=== PATIENT | male | born 1980 | race Two or more races ===

== ENCOUNTER 2016-09-01 12:18 | Inpatient (IN) | payer MEDICAID ==
[~2016-09-01] VITALS: Ht 170.2 cm; Wt 93.6 kg
[~2016-09-01 12:18] MED LIST: CARV6.2551; ENAL-3; ENAL20TA70; FURO40TA4; NIFE30TA70; NIFE60TA53
[2016-09-01] MEDS ORDERED: FUROSEMIDE 40 MG/4 ML VIAL IV ONE (13:15)
[2016-09-01 13:43] LABS: Basophils # (auto) 0 uL; Basophils % (auto) 0.4 % (0.0-2.0); Eosinophils # (auto) 0.1 uL; Eosinophils % (auto) 1.3 % (0.0-7.0); Hematocrit 47.2 % (41.0-53.0); Hemoglobin 15.6 g/dL (13.5-17.5); Lymphocytes # (auto) 1.1 uL; Lymphocytes % (auto) 13.4 % (10.0-50.0); Mean Corpuscular Hemoglobin 29.5 pg (28.0-32.0); Mean Corpuscular Volume 89.6 fL (80.0-100.0); Mean Platelet Volume 9.1 fL (7.4-10.4); Monocytes # (auto) 0.5 uL; Monocytes % (auto) 6.2 % (0.0-12.0); Neutrophils # (auto) 6.2 uL; Neutrophils % (auto) 78.7 % (37.0-80.0); Platelet Count (auto) 227 10^3/uL (140-450); Red Cell Distribution Width 15.3 % (11.6-16.0); White Blood Cell 7.8 10^3/uL (4.4-10.8)
[2016-09-01 14:10] LABS: Urine Bilirubin Negative (Negative); Urine Blood Negative /uL (Negative); Urine Color Yellow (Yellow); Urine Glucose Normal (Normal); Urine Ketone Negative (Negative); Urine Nitrite Negative (Negative); Urine RBC <1 /hpf (0 - 3); Urine Urobilinogen Normal (Negative); Urine pH 5.5 (5.0-8.0)
[2016-09-01 14:11] LABS: Albumin 3.5 g/dL (3.4-5.0); BUN/Creatinine Ratio 14.4; Bilirubin, Total 1.2 mg/dL (0.2-1.0); Calcium 8.5 mg/dL (8.5-10.1); Potassium 3.2 mmol/L (3.5-5.1); Total Protein 7.8 g/dL (6.4-8.2)
[2016-09-01 14:12] LABS: Temperature: 22.8 C (20.0-25.0)
[2016-09-01 14:27] LABS: INR 1.04 (0.9-1.15); Prothrombin Time 10.7 sec (9.37-12.3)
[2016-09-01] MEDS ORDERED: ASPirin 81 mg TAB PO ONE (14:45)
[2016-09-01] MEDS ORDERED: ENOXAPARIN SOD 100 MG/1 ML SYRINGE SC ONE (14:45)
[2016-09-01] MEDS ORDERED: POTASSIUM CHL 20 Meq TABLET PO ONE (15:45)
[2016-09-01] MEDS ORDERED: MORPHINE SULF INJ 2 MG/ML SYRINGE 1ML IV PRN (15:45)
[2016-09-01] MEDS ORDERED: NITROGLYCERIN 0.4 MG SL TAB SL PRN (15:45)
[2016-09-01] MEDS ORDERED: ENALAPRIL MALEATE 10 MG TAB PO ONE (15:45)
[2016-09-01] MEDS ORDERED: FOLIC ACID 1 MG in D5W 5% 50 ML IV ONE (15:45)
[2016-09-01] MEDS ORDERED: NIFEdipine ER 30 MG TAB PO ONE (15:45)
[2016-09-01] MEDS ORDERED: THIAMINE HCL 100 MG/ML 2ML VIAL IV ONE (15:45)
[2016-09-01] MEDS: cloNIDine HCL 0.1 MG TAB PO PRN ×2 (17:29→21:37)
[2016-09-01] MEDS: METOPROLOL TARTRATE 25 MG TAB PO SCH (21:37)
[2016-09-02] MEDS: LORazepam 2MG/ML-1ML VIAL IV PRN (02:16)
[2016-09-02 04:42] LABS: Calcium 8.7 mg/dL (8.5-10.1); Magnesium 2.2 mg/dL (1.6-2.6); Potassium 3.1 mmol/L (3.5-5.1)
[2016-09-02 04:44] LABS: Temperature: 20.1 C (20.0-25.0)
[2016-09-02] MEDS ORDERED: POTASSIUM CHL 20 Meq TABLET PO SCH (10:00)
[2016-09-02] MEDS ORDERED: FUROSEMIDE 40 MG TAB PO SCH (10:00)
[2016-09-02] MEDS: ASPirin 81 mg TAB PO SCH (10:02)
[2016-09-02] MEDS: THIAMINE HCL 100 MG/ML 2ML VIAL IV SCH (10:02)
[2016-09-02] MEDS: ENALAPRIL MALEATE 10 MG TAB PO SCH (10:02)
[2016-09-02] MEDS: FOLIC ACID 1 MG in D5W 5% 50 ML IV SCH ×2 (10:02→11:00)
[2016-09-02] MEDS: METOPROLOL TARTRATE 25 MG TAB PO SCH ×2 (10:04→22:01)
[2016-09-02] MEDS: NIFEdipine ER 30 MG TAB PO SCH (10:04)
[2016-09-02] MEDS ORDERED: METOPROLOL TARTRATE 1MG/1ML-5ML VIAL IV ONE (10:20)
[2016-09-02] MEDS ORDERED: NITROGLYCERIN 0.4 MG SL TAB SL ONE (10:20)
[2016-09-02] MEDS: SOD CHL 0.45% 1,000 ML IV SCH (13:17)
[2016-09-02 15:18] VITALS: BP 123/85
[2016-09-02 20:00] VITALS: BP 146/96
[2016-09-02 22:00] VITALS: BP 146/96
[2016-09-02] MEDS: ATORVASTATIN 20 MG TAB PO SCH (22:00)
[2016-09-03] MEDS: LORazepam 2MG/ML-1ML VIAL IV PRN ×3 (00:21→20:33)
[2016-09-03 05:00] VITALS: BP 144/96
[2016-09-03 06:28] LABS: BUN/Creatinine Ratio 15.9; Calcium 8.9 mg/dL (8.5-10.1)
[2016-09-03 06:40] LABS: Potassium 3.2 mmol/L (3.5-5.1)
[2016-09-03 08:00] VITALS: BP 165/115
[2016-09-03 09:00] VITALS: BP 182/100
[2016-09-03] MEDS: SOD CHL 0.45% 1,000 ML IV SCH (09:00)
[2016-09-03] MEDS: THIAMINE HCL 100 MG/ML 2ML VIAL IV SCH (09:17)
[2016-09-03] MEDS: ENALAPRIL MALEATE 10 MG TAB PO SCH (09:17)
[2016-09-03] MEDS: cloNIDine HCL 0.1 MG TAB PO PRN (09:17)
[2016-09-03] MEDS: ASPirin 81 mg TAB PO SCH (09:18)
[2016-09-03] MEDS: METOPROLOL TARTRATE 25 MG TAB PO SCH ×2 (09:18→20:57)
[2016-09-03] MEDS: NIFEdipine ER 30 MG TAB PO SCH (09:19)
[2016-09-03] MEDS: FOLIC ACID 1 MG in D5W 5% 50 ML IV SCH (10:55)
[2016-09-03] MEDS ORDERED: LABETALOL HCL 5 MG/ML 4ML SYRINGE IV PRN (12:00)
[2016-09-03] MEDS ORDERED: cloNIDine HCL 0.1 MG TAB PO ONE (12:00)
[2016-09-03 13:00] VITALS: BP 154/116
[2016-09-03 17:00] VITALS: BP 137/91
[2016-09-03] MEDS: ATORVASTATIN 20 MG TAB PO SCH (20:56)
[2016-09-03] MEDS: cloNIDine HCL 0.1 MG TAB PO SCH (20:57)
[2016-09-03 21:59] VITALS: BP 152/113
[2016-09-04] MEDS: LORazepam 2MG/ML-1ML VIAL IV PRN ×2 (02:28→21:08)
[2016-09-04 04:54] VITALS: BP 150/113
[2016-09-04] MEDS: SOD CHL 0.45% 1,000 ML IV SCH (05:00)
[2016-09-04 07:12] LABS: BUN/Creatinine Ratio 15.9; Calcium 8.6 mg/dL (8.5-10.1); Potassium 3.3 mmol/L (3.5-5.1)
[2016-09-04 08:00] VITALS: BP 151/116
[2016-09-04 09:00] VITALS: BP 151/116
[2016-09-04] MEDS: FOLIC ACID 1 MG in D5W 5% 50 ML IV SCH (10:44)
[2016-09-04] MEDS: THIAMINE HCL 100 MG/ML 2ML VIAL IV SCH (10:44)
[2016-09-04] MEDS: cloNIDine HCL 0.1 MG TAB PO SCH ×2 (10:45→22:11)
[2016-09-04] MEDS: METOPROLOL TARTRATE 25 MG TAB PO SCH ×2 (10:45→22:12)
[2016-09-04] MEDS: ASPirin 81 mg TAB PO SCH (10:46)
[2016-09-04] MEDS ORDERED: POTASSIUM CHL 20 Meq TABLET PO ONE (12:30)
[2016-09-04 13:00] VITALS: BP 140/98
[2016-09-04] MEDS: NIFEdipine ER 30 MG TAB PO SCH (16:00)
[2016-09-04 17:00] VITALS: BP 126/87
[2016-09-04 22:00] VITALS: BP 147/110
[2016-09-04] MEDS: ATORVASTATIN 20 MG TAB PO SCH (22:11)
[2016-09-05] MEDS: LORazepam 2MG/ML-1ML VIAL IV PRN (03:17)
[2016-09-05 05:00] VITALS: BP 127/90
[2016-09-05 07:51] LABS: BUN/Creatinine Ratio 13.8; Calcium 8.7 mg/dL (8.5-10.1); Potassium 3.6 mmol/L (3.5-5.1)
[2016-09-05 08:00] VITALS: BP 146/90
[2016-09-05 09:00] VITALS: BP 146/90
[2016-09-05] MEDS: FOLIC ACID 1 MG in D5W 5% 50 ML IV SCH (10:07)
[2016-09-05] MEDS: METOPROLOL TARTRATE 25 MG TAB PO SCH (10:08)
[2016-09-05] MEDS: ASPirin 81 mg TAB PO SCH (10:08)
[2016-09-05] MEDS: THIAMINE HCL 100 MG/ML 2ML VIAL IV SCH (10:08)
[2016-09-05] MEDS: cloNIDine HCL 0.1 MG TAB PO SCH (10:08)
[2016-09-05] MEDS: NIFEdipine ER 30 MG TAB PO SCH (11:41)
[2016-09-05 13:00] VITALS: BP 179/87
[2016-09-05 14:11] VITALS: BP 151/98
== END 2016-09-05 15:15 | disposition home or self-care (01) | DRG 194 ==
LOC: ER 12:18 → TELE 12:19 → EAST 09-02 15:08 → WEST WING 09-02 19:25 → TELE-WESTW 09-03 02:30
PROVIDERS: ADMIT Internal Medicine; ATTEND Internal Medicine
DX: I13.0 Hypertensive heart and chronic kidney disease with heart failure and stage 1 through stage 4 chronic kidney disease, or unspecified chronic kidney disease (principal); I42.9 Cardiomyopathy, unspecified; N18.3 Chronic kidney disease, stage 3 (moderate); F15.10 Other stimulant abuse, uncomplicated; F10.10 Alcohol abuse, uncomplicated; F12.10 Cannabis abuse, uncomplicated; F17.210 Nicotine dependence, cigarettes, uncomplicated; I50.43 Acute on chronic combined systolic (congestive) and diastolic (congestive) heart failure; Z91.19 Patient's noncompliance with other medical treatment and regimen; Z79.899 Other long term (current) drug therapy
CPT/HCPCS: 36415; 71010; 75574; 80048; 80053; 81001; 83735; 83880; 84484; 85025; 85610; 85730; 93005; 93306; 96372; 96374; 96375; G0434; J7060

== ENCOUNTER 2016-11-05 18:13 | Inpatient (IN) | payer MEDICAID ==
[~2016-11-05] VITALS: Ht 182.9 cm; Wt 90.7 kg
[2016-11-05] MEDS ORDERED: cloNIDine HCL 0.1 MG TAB PO ONE (18:45)
[2016-11-05 19:44] LABS: Albumin 3.4 g/dL (3.4-5.0); BUN/Creatinine Ratio 9.3; Calcium 8.8 mg/dL (8.5-10.1); Magnesium 2.1 mg/dL (1.6-2.6); Potassium 3.3 mmol/L (3.5-5.1)
[2016-11-05 19:51] LABS: Bilirubin, Total 1.2 mg/dL (0.2-1.0); Total Protein 8.1 g/dL (6.4-8.2)
[2016-11-05 19:53] LABS: Basophils # (auto) 0 uL; Basophils % (auto) 0.4 % (0.0-2.0); Eosinophils # (auto) 0.1 uL; Eosinophils % (auto) 1.7 % (0.0-7.0); Hematocrit 48.2 % (41.0-53.0); Hemoglobin 15.6 g/dL (13.5-17.5); Lymphocytes # (auto) 1.4 uL; Lymphocytes % (auto) 16.9 % (10.0-50.0); Mean Corpuscular Hgb Conc. 32.3 g/dL (32.0-36.0); Mean Corpuscular Volume 89.8 fL (80.0-100.0); Mean Platelet Volume 9.5 fL (7.4-10.4); Monocytes # (auto) 0.4 uL; Neutrophils # (auto) 6.4 uL; Platelet Count (auto) 295 10^3/uL (140-450); Red Cell Distribution Width 15.1 % (11.6-16.0); White Blood Cell 8.4 10^3/uL (4.4-10.8)
[2016-11-05] MEDS ORDERED: LORazepam 0.5 MG TAB PO ONE (20:15)
[2016-11-05] MEDS ORDERED: ASPirin-EC 81 mg tab PO ONE (20:45)
[2016-11-05] MEDS ORDERED: POTASSIUM CHL 20 Meq TABLET PO ONE (20:45)
[2016-11-05 21:21] LABS: B-Type Natriuretic Peptide 995.21 pg/mL (0-100); Temperature: 23.5 C (20.0-25.0)
[2016-11-05 21:30] LABS: INR 0.98 (0.9-1.15); Partial Thromboplastin Time 31.7 sec (22.64-33.71); Prothrombin Time 10.7 sec (9.37-12.3)
[2016-11-06] MEDS ORDERED: LISINOPRIL 20 MG TAB PO ONE (01:30)
[2016-11-06] MEDS ORDERED: HYDROcodone-ACET 5/325MG TAB PO PRN (01:30)
[2016-11-06] MEDS ORDERED: ONDANSETRON HCL 4 MG/2 ML VIAL IV PRN (01:30)
[2016-11-06] MEDS ORDERED: NITROGLYCERIN 0.4 MG SL TAB SL PRN (01:30)
[2016-11-06] MEDS ORDERED: ACETAMINOPHEN 325 MG TAB PO PRN (01:30)
[2016-11-06] MEDS ORDERED: MORPHINE SULF INJ 2 MG/ML SYRINGE 1ML IV PRN (01:30)
[2016-11-06] MEDS ORDERED: TEMAZEPAM 15 MG CAP PO PRN (01:30)
[2016-11-06] MEDS ORDERED: FUROSEMIDE 40 MG/4 ML VIAL IV ONE (08:45)
[2016-11-06] MEDS ORDERED: LISINOPRIL 20 MG TAB PO SCH (10:00)
[2016-11-06] MEDS ORDERED: ASPirin 81 mg TAB PO SCH (10:00)
[2016-11-06] MEDS ORDERED: cloNIDine HCL 0.1 MG TAB PO SCH (10:00)
[2016-11-06] MEDS ORDERED: FAMOTIDINE 20 MG TAB PO SCH (10:00)
[2016-11-06] MEDS ORDERED: ENOXAPARIN SOD 40 MG/0.4 ML SYRINGE SC SCH (10:00)
[2016-11-06] MEDS ORDERED: METOPROLOL TARTRATE 25 MG TAB PO SCH (10:00)
[2016-11-06] MEDS ORDERED: NIFEdipine ER 30 MG TAB PO SCH (10:00)
[2016-11-06] MEDS ORDERED: FUROSEMIDE 40 MG TAB PO SCH (10:00)
[2016-11-06] MEDS ORDERED: ASPI81CH43 PO (11:26)
[2016-11-06] MEDS ORDERED: ATOR20TA50 PO (11:26)
[2016-11-06 12:00] VITALS: BP 140/102
[2016-11-06] MEDS ORDERED: ATORVASTATIN 20 MG TAB PO SCH (22:00)
== END 2016-11-06 13:30 | disposition home or self-care (01) | DRG 190 ==
LOC: ER 18:13 → TELE 18:14 → TELE-E-ADS 11-06 08:03
PROVIDERS: ADMIT Internal Medicine; ATTEND Internal Medicine
DX: I21.4 Non-ST elevation (NSTEMI) myocardial infarction (principal); I50.43 Acute on chronic combined systolic (congestive) and diastolic (congestive) heart failure; I42.9 Cardiomyopathy, unspecified; I08.0 Rheumatic disorders of both mitral and aortic valves; F17.210 Nicotine dependence, cigarettes, uncomplicated; F12.10 Cannabis abuse, uncomplicated; I11.0 Hypertensive heart disease with heart failure; F15.10 Other stimulant abuse, uncomplicated; E87.6 Hypokalemia; Z82.49 Family history of ischemic heart disease and other diseases of the circulatory system; Z91.19 Patient's noncompliance with other medical treatment and regimen; Z84.1 Family history of disorders of kidney and ureter
CPT/HCPCS: 36415; 71020; 80053; 80307; 83735; 83880; 84443; 84484; 85025; 85610; 85730; 93005; 94761

== ENCOUNTER 2016-12-19 00:33 | Inpatient (IN) | payer MEDICAID ==
[~2016-12-19] VITALS: Ht 182.9 cm; Wt 87.3 kg
[~2016-12-19 00:33] MED LIST changes: +ASPI81CH43 PO; +ATOR20TA50 PO
[2016-12-19] MEDS ORDERED: ALBUTEROL SULF 2.5 MG/0.5ML(0.5%) NEB SOLN NEB ONE (01:30)
[2016-12-19] MEDS ORDERED: IPRATROPIUM BROM 0.5 MG/2.5ML INH SOL NEB ONE (01:30)
[2016-12-19] MEDS ORDERED: methylPREDNISolone SOD SUCC 125 MG/2 ML VL IV ONE (01:30)
[2016-12-19 01:40] LABS: Basophils # (auto) 0.1 uL; Basophils % (auto) 0.8 % (0.0-2.0); CONDITION Y; Eosinophils # (auto) 0.1 uL; Eosinophils % (auto) 1.4 % (0.0-7.0); Hematocrit 47.3 % (41.0-53.0); Hemoglobin 15.2 g/dL (13.5-17.5); Lymphocytes # (auto) 1.5 uL; Mean Corpuscular Hemoglobin 28.9 pg (28.0-32.0); Mean Corpuscular Hgb Conc. 32.1 g/dL (32.0-36.0); Mean Corpuscular Volume 89.8 fL (80.0-100.0); Mean Platelet Volume 9.7 fL (7.4-10.4); Monocytes # (auto) 0.4 uL; Neutrophils # (auto) 6.9 uL; Neutrophils % (auto) 76.8 % (37.0-80.0); Platelet Count (auto) 249 10^3/uL (140-450); Red Cell Distribution Width 16.6 % (11.6-16.0); SUSPECT SEE PRINTOUT; White Blood Cell 8.9 10^3/uL (4.4-10.8)
[2016-12-19] MEDS ORDERED: cloNIDine HCL 0.1 MG TAB PO ONE (01:45)
[2016-12-19 01:52] LABS: Albumin 3.3 g/dL (3.4-5.0); BUN/Creatinine Ratio 11.5; Calcium 8.6 mg/dL (8.5-10.1); Potassium 3.6 mmol/L (3.5-5.1)
[2016-12-19 02:00] LABS: Temperature: 22.7 C (20.0-25.0)
[2016-12-19 02:01] LABS: Bilirubin, Total 0.9 mg/dL (0.2-1.0); Total Protein 8.1 g/dL (6.4-8.2)
[2016-12-19 02:23] LABS: Allen Test Yes; Base Excess -2.3 mmol/L (-2.0-2.0); Blood 02Sat 92.2 % (96-100); Blood COHb 0.3 % (0.5-1.5); Blood MetHb 0.3 % (0.0-1.5); HCO3 19.1 mmol/L (22-26.0); HHb 7.8 % (0.0-5.0); MODE MASK - SIMPLE; O2Hb 91.6 % (94.0-97.0); PCO2 25.8 mmHg (35.0-45.0); PCO2(T) 25.8 mmHg (35.0-45.0); PO2 66.7 mmHg (80.0-100.0); PO2(T) 66.7 mmHg (80.0-100.0); Sample Type Arterial; pH 7.488 (7.350-7.450)
[2016-12-19 03:34] LABS: Urine Bilirubin Negative (Negative); Urine Blood Negative /uL (Negative); Urine Color Yellow (Yellow); Urine Glucose Normal (Normal); Urine Granular Cast FEW /lpf (0); Urine Hyaline Cast MANY /lpf (0 - 2); Urine Ketone Negative (Negative); Urine Mucus FEW (None Seen); Urine Nitrite Negative (Negative); Urine RBC <1 /hpf (0 - 3)
[2016-12-19] MEDS ORDERED: LABETALOL HCL 200 MG TAB PO ONE (03:45)
[2016-12-19] MEDS ORDERED: FUROSEMIDE 20 MG/2 ML VIAL IV ONE (03:45)
[2016-12-19] MEDS ORDERED: HYDROcodone-ACET 5/325MG TAB PO PRN (06:45)
[2016-12-19] MEDS ORDERED: cloNIDine HCL 0.1 MG TAB PO PRN (06:45)
[2016-12-19] MEDS ORDERED: ACETAMINOPHEN 325 MG TAB PO PRN (06:45)
[2016-12-19] MEDS ORDERED: ONDANSETRON HCL 4 MG/2 ML VIAL IV PRN (06:45)
[2016-12-19] MEDS ORDERED: ALBUTEROL SULF 2.5 MG/0.5ML(0.5%) NEB SOLN NEB PRN (06:45)
[2016-12-19] MEDS ORDERED: NITROGLYCERIN 0.4 MG SL TAB SL PRN (06:45)
[2016-12-19] MEDS ORDERED: MORPHINE SULF INJ 2 MG/ML SYRINGE 1ML IV PRN (06:45)
[2016-12-19 09:26] VITALS: BP 130/58
[2016-12-19] MEDS: FAMOTIDINE 20 MG TAB PO SCH ×2 (10:19→21:57)
[2016-12-19] MEDS: FUROSEMIDE 40 MG TAB PO SCH (10:19)
[2016-12-19] MEDS: ASPirin 81 mg TAB PO SCH (10:19)
[2016-12-19] MEDS: ENALAPRIL MALEATE 10 MG TAB PO SCH (10:20)
[2016-12-19] MEDS: CARVEDILOL 3.125 MG TAB PO SCH ×2 (10:21→21:57)
[2016-12-19] MEDS: NIFEdipine ER 30 MG TAB PO SCH (10:21)
[2016-12-19] MEDS: ENOXAPARIN SOD 40 MG/0.4 ML SYRINGE SC SCH (10:22)
[2016-12-19] MEDS ORDERED: CLON0.1T PO (11:30)
[2016-12-19] MEDS ORDERED: NIFE90TA30 PO (11:30)
[2016-12-19] MEDS ORDERED: METO25TA5 PO (11:30)
[2016-12-19 12:38] VITALS: BP 130/88
[2016-12-19 16:31] VITALS: BP 125/87
[2016-12-19 20:00] VITALS: BP 110/56
[2016-12-19 21:30] VITALS: BP 110/56
[2016-12-19] MEDS ORDERED: ATORVASTATIN 20 MG TAB PO SCH (22:00)
[2016-12-19 23:56] VITALS: BP 110/56
[2016-12-20 05:00] VITALS: BP 111/57
[2016-12-20 06:31] LABS: Albumin 2.9 g/dL (3.4-5.0); BUN/Creatinine Ratio 21.9; Bilirubin, Total 0.9 mg/dL (0.2-1.0); Calcium 8.7 mg/dL (8.5-10.1); Potassium 3.4 mmol/L (3.5-5.1)
[2016-12-20 06:34] LABS: Basophils # (auto) 0 uL; Basophils % (auto) 0.2 % (0.0-2.0); CONDITION Y; Eosinophils # (auto) 0 uL; Eosinophils % (auto) 0.1 % (0.0-7.0); Hematocrit 41.9 % (41.0-53.0); Hemoglobin 13.7 g/dL (13.5-17.5); Lymphocytes # (auto) 1.1 uL; Lymphocytes % (auto) 9.1 % (10.0-50.0); Mean Corpuscular Hemoglobin 29.1 pg (28.0-32.0); Mean Corpuscular Hgb Conc. 32.8 g/dL (32.0-36.0); Mean Corpuscular Volume 88.7 fL (80.0-100.0); Mean Platelet Volume 9.6 fL (7.4-10.4); Monocytes # (auto) 0.8 uL; Monocytes % (auto) 6.5 % (0.0-12.0); Neutrophils # (auto) 10.5 uL; Neutrophils % (auto) 84.1 % (37.0-80.0); Platelet Count (auto) 252 10^3/uL (140-450); Red Cell Distribution Width 16.1 % (11.6-16.0); SUSPECT SEE PRINTOUT; White Blood Cell 12.5 10^3/uL (4.4-10.8)
[2016-12-20 09:00] VITALS: BP 120/78
[2016-12-20] MEDS: ASPirin 81 mg TAB PO SCH (09:38)
[2016-12-20] MEDS: ENALAPRIL MALEATE 10 MG TAB PO SCH (09:38)
[2016-12-20] MEDS: NIFEdipine ER 30 MG TAB PO SCH (09:39)
[2016-12-20] MEDS: FUROSEMIDE 40 MG TAB PO SCH (09:39)
[2016-12-20] MEDS: FAMOTIDINE 20 MG TAB PO SCH (09:39)
[2016-12-20] MEDS: CARVEDILOL 3.125 MG TAB PO SCH (09:39)
[2016-12-20] MEDS: ENOXAPARIN SOD 40 MG/0.4 ML SYRINGE SC SCH (09:39)
[2016-12-20 13:00] VITALS: BP 126/74
[2016-12-20] MEDS ORDERED: POTASSIUM CHL 20 Meq TABLET PO ONE (16:00)
[2016-12-20] MEDS ORDERED: LOR05T PO (16:07)
[2016-12-20] MEDS ORDERED: FURO40TA4 PO (16:07)
[2016-12-20] MEDS ORDERED: LORazepam 2MG/ML-1ML VIAL IV ONE (16:30)
[2016-12-20 16:49] VITALS: BP 137/95
== END 2016-12-20 16:55 | disposition home or self-care (01) | DRG 194 ==
LOC: ER 00:33 → EDBD 00:33 → TELE 00:34 → TELE-E-ADS 07:56 → TELE-EAST 10:48
PROVIDERS: ADMIT Nurse Practitioner; ATTEND Nurse Practitioner Acute Care
DX: I13.0 Hypertensive heart and chronic kidney disease with heart failure and stage 1 through stage 4 chronic kidney disease, or unspecified chronic kidney disease (principal); N17.9 Acute kidney failure, unspecified; I50.43 Acute on chronic combined systolic (congestive) and diastolic (congestive) heart failure; F17.210 Nicotine dependence, cigarettes, uncomplicated; I70.0 Atherosclerosis of aorta; F19.10 Other psychoactive substance abuse, uncomplicated; N18.9 Chronic kidney disease, unspecified; E44.1 Mild protein-calorie malnutrition; Z82.49 Family history of ischemic heart disease and other diseases of the circulatory system; Z68.26 Body mass index [BMI] 26.0-26.9, adult; Z84.1 Family history of disorders of kidney and ureter; Z91.14 Patient's other noncompliance with medication regimen
CPT/HCPCS: 36415; 36600; 71010; 80053; 80307; 81001; 82805; 83880; 84484; 85025; 93005; 94640; 96374; 96375